=== PATIENT | male | born 1930 | race Asian ===

== ENCOUNTER → 2021-08-30 | Outpatient (CLI) | payer OTHER ==
[~2021-08-30] MED LIST: IOPAMIDOL 370 MG/ML 200 ML INFUS..BTL INJ ONE; SODIUM CHLORIDE 0.9% 500ML 500 ML ONE; SODIUM CHLORIDE 0.9% 50ML 50 ML ONE
[2021-08-30 11:42] LABS: CREATININE, SERUM 1.37 mg/dL (0.72-1.25)
== END ==
LOC: CT 10:40 → EDSEX 10:40
PROVIDERS: ATTEND Internal Medicine
DX: R79.1 Abnormal coagulation profile (principal)
CPT/HCPCS: 36415; 71260; 82565; 84520; 96360; J7040; Q9967